=== PATIENT | male | born 1970 | race Caucasian/White ===

== ENCOUNTER 2019-11-29 07:23 | Inpatient (IN) ==
--- NOTE | 2019-11-29 07:41 | Emergency Department Note ---
ED Disposition Clinical Impression: Tobacco use ST elevation myocardial infarction (STEMI) Qualifiers: Involved coronary artery: unspecified coronary artery Qualified Code(s): I21.3 - ST elevation (STEMI) myocardial infarction of unspecified site Hyperlipidemia Qualifiers: Hyperlipidemia type: unspecified Qualified Code(s): E78.5 - Hyperlipidemia, unspecified Disposition: Admitted As Inpatient Condition on Discharge: Serious - Critical Care Critical Care Time: No Attestation: On 11/29/19, the high probability of a clinically significant, sudden or life threatening deterioration of the following system(s) required my full and direct attention, intervention and personal management. The time I documented below is in addition to time spent performing reported procedures but includes the following listed in this critical care notation. Medical Decision Making - Medical Records Medical records reviewed: Yes: I reviewed the patient's medical records. - Ken Inquiry Pt receiving controlled substance: No Vital Signs: 11/29/19 07:24 11/29/19 07:25 Temperature 98.4 F Temperature Source Oral Pulse Rate [Left Radial] 88 82 Respiratory Rate 16 Blood Pressure [Right Arm] 119/91 H 152/96 H Blood Pressure Mean [Right Arm] 100 114 Blood Pressure Source [Right Arm] Automatic Cuff Blood Pressure Position [Right Arm] Sitting Sitting 02 Sat by Pulse Oximetry 98 Oxygen Delivery Method Room Air - Lab Data Lab results reviewed: Yes: I reviewed the patient's lab results. Lab Results 11/29/19 07:29: WBC 14.7 H, RBC 5.78, Hgb 17.6, Hct 52.9 H, MCV 91.5, MCH 30.4, MCHC 33.2, RDW 13.4, Plt Count 344, MPV 7.3 L, Neut % (Auto) 79.2, Lymph % (Auto) 14.4, [place] % (Auto) 5.1, Eos % (Auto) 1.1, Baso % (Auto) 0.3, Neut # (Auto) 11.6 H, Lymph # (Auto) 2.1, [place] # (Auto) 0.8, Eos # (Auto) 0.2, Baso # (Auto) 0.0 11/29/19 07:29: Sodium 144, Potassium 3.8, Chloride 105, Carbon Dioxide 30, Anion Gap 12.8, BUN 30 H, Creatinine 0.99, Estimated Creat Clear 84, Estimated GFR 80, Est GFR ( Amer) 96, Glucose 125 H, Calcium 9.5, Troponin I 2.96 H 11/29/19 07:30: Triglycerides 109, Cholesterol 218 H, LDL Cholesterol 154 H, VLDL Cholesterol 22, HDL Cholesterol 42, Cholesterol/HDL Ratio 5.2 H Result diagrams: 11/29/19 07:29 11/29/19 07:29 Orders (Tests/Meds): ED MEDICATIONS Generic Name Dose Route Start Last Admin Trade Name Lesterq PRN Reason Stop Dose Admin Atorvastatin Calcium 80 mg 11/29/19 21:00 Lipitor 40mg Tablet PO 12/29/19 20:59 HS RIVAS Diphenhydramine HCl 50 mg 11/29/19 07:31 11/29/19 07:51 Benadryl 50mg/1ml Vial IV 11/29/19 07:32 50 mg ONCE ONE Administration Fentanyl Citrate 25 mcg 11/29/19 07:31 Fentanyl 100mcg/2ml Vial IV 11/30/19 07:31 Q3MINP PRN Moderate to Severe Pain Fentanyl Citrate 50 mcg 11/29/19 07:31 Fentanyl 100mcg/2ml Vial IV 11/30/19 07:31 Q3MINP PRN Moderate to Severe Pain Fentanyl Citrate 25 mcg 11/29/19 07:31 Fentanyl 250mcg/5ml Vial IV 11/30/19 07:31 Q3MINP PRN Moderate to Severe Pain Fentanyl Citrate 50 mcg 11/29/19 07:31 Fentanyl 250mcg/5ml Vial IV 11/30/19 07:31 Q3MINP PRN Moderate to Severe Pain Fentanyl Citrate 25 mcg 11/29/19 07:50 Fentanyl 250mcg/5ml Vial IV 11/30/19 07:50 Q3MINP PRN Moderate to Severe Pain Fentanyl Citrate 50 mcg 11/29/19 07:50 Fentanyl 250mcg/5ml Vial IV 11/30/19 07:50 Q3MINP PRN Moderate to Severe Pain Flumazenil 0.2 mg 11/29/19 07:31 Romazicon 0.1mg/Ml 5ml Vial IV 11/29/19 23:00 NEEDED PRN Sedation Flumazenil 0.2 mg 11/29/19 07:50 Romazicon 0.1mg/Ml 5ml Vial IV 11/29/19 23:00 NEEDED PRN Sedation Heparin Sodium (Porcine) 10,000 unit 11/29/19 07:31 Heparin 1,000 Units/Ml 10ml Vial (Javascript Web Developer) IV 11/29/19 11:31 NEEDED PRN Emergency Box Wireless Architect Heparin Sodium/Sodium Chloride 3,000 unit 11/29/19 07:31 11/29/19 07:51 Heparin 1000 Units/500ml Ns (Javascript Web Developer) IV 11/29/19 07:32 3,000 unit ONCE ONE Administration Sodium Chloride 1,000 mls @ 25 mls/hr 11/29/19 07:45 11/29/19 07:51 Sod Chlor 0.9% 1000ml Bag IV 11/30/19 07:31 25 mls/hr .Q25H RIVAS Administration Sodium Chloride 1,000 mls @ 999 mls/hr 11/29/19 08:00 11/29/19 07:25 Sod Chlor 0.9% 1000ml Bag IV 11/29/19 09:00 999 mls/hr .Q1H1M RIVAS Administration Lidocaine HCl 20 ml 11/29/19 07:31 Lidocaine 1% 5ml Pf Vial IJ 11/29/19 07:32 ONCE ONE Lidocaine HCl 20 ml 11/29/19 07:31 11/29/19 07:51 Lidocaine 1% 10ml Mdv IJ 11/29/19 07:32 10 ml ONCE ONE Administration Midazolam HCl 1 mg 11/29/19 07:31 Midazolam 2mg/2ml Vial IV 11/30/19 07:31 Q3MINP PRN Sedation Midazolam HCl 1 mg 11/29/19 07:31 Midazolam 1mg/Ml 5ml Vial IV 11/30/19 07:31 Q3MINP PRN Sedation Midazolam HCl 1 mg 11/29/19 07:50 Midazolam 2mg/2ml Vial IV 11/30/19 07:50 Q3MINP PRN Sedation Midazolam HCl 1 mg 11/29/19 07:50 Midazolam 1mg/Ml 5ml Vial IV 11/30/19 07:50 Q3MINP PRN Sedation Naloxone HCl 0.4 mg 11/29/19 07:31 Narcan 0.4mg/Ml Vial IV 11/30/19 07:31 Q5MINP PRN Decreased Respirations Naloxone HCl 0.4 mg 11/29/19 07:50 Narcan 0.4mg/Ml Vial IV 11/30/19 07:50 Q5MINP PRN Decreased Respirations Nitroglycerin 0.4 mg 11/29/19 07:28 11/29/19 07:26 Nitrostat 0.4mg Sl Tablet SL 12/29/19 07:27 0.4 mg Q5MINP PRN Administration Chest Pain Nitroglycerin 800 mcg 11/29/19 07:31 11/29/19 07:52 Nitroglycerin 800mcg/8ml Syr (Javascript Web Developer) IV 11/30/19 07:31 800 mcg NEEDED PRN Administration Emergency Box Wireless Architect Verapamil HCl 2.5 mg 11/29/19 07:31 11/29/19 07:52 Verapamil 2.5mg/Ml 2ml Vial IV 11/29/19 07:32 2.5 mg ONCE ONE Administration Discontinued Medications Generic Name Dose Route Start Last Admin Trade Name Freq PRN Reason Stop Dose Admin Aspirin 324 mg 11/29/19 07:28 11/29/19 07:24 Aspirin 81mg Chewable Tablet PO 11/29/19 07:29 324 mg ONCE ONE Administration ORDERS Category Date Time Status XR chest portable Stat Exams 11/29/19 07:28 Ordered Troponin I Q3H Lab 11/29/19 10:30 Ordered Troponin I Q3H Lab 11/29/19 13:30 Ordered - ECG Data Tracing #1 Normal Sinus Rhythm: Yes Ischemic changes: acute STEMI - Physician Consults Physician Consulted: chandrika Reason -: Pt condition Chest Pain HPI - General Chief Complaint: Chest Pain Stated Complaint: chest pain Time Seen by Provider: 11/29/19 07:25 Mode of Arrival: Ambulatory Source of Information: Patient, Medical Record Limitations: No Limitations Description of Symptoms (Recalled from ER Triage Doc. by RN): to ed per pvt car with c/o chest pain which woke him up at 4am. 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 pt states he also had simular pain tuesday but pain resolved. - History of Present Illness HPI narrative: episode of chest pain tuesday which improved - he then was awaken with chest pain this am with rad to shoulder at 0700- he was seen in the ed with stemi and was taken to lab scientist complaint: chest pain indicative of cardiac Onset (ago): hour(s) Duration: constant Activity at onset: awoke with symptoms Pain location: substernal Severity: moderate Quality: dull Pain radiation: LUE Risk Factors for CAD: Hypertension, Family Hx of CAD, Smoking Treatments prior to or on arrival for Cardiac Chest Pain: none - KYLE Score for Stemi Age of Patient: 50-59 years old Heart Rate: 70-89 bpm Systolic Blood Pressure: 100-119 mmHg Serum Creatinine: 0.80-1.19 mg/dl CHF [place] Class: I-No CHF Other Risk Factors: Elevated Cardiac Enzymes or Biomarkers Stemi Risk Score: 114 - Related Data Home Medications Medication Instructions Recorded Confirmed No Known Home Medications 11/29/19 11/29/19 Allergies Allergy/AdvReac Type Severity Reaction Status Date / Time CODEINE Allergy Mild Uncoded 10/04/17 15:03 [facility] History - Hepatitis A Screen Drug use history?: No High risk sexual behaviors?: No History of sexually transmitted infection?: No Currently employed?: No Childcare worker?: No Do you have indoor plumbing?: Yes Do you have electricity?: Yes Attestation statement:: This patient has been screened for Hepatitis A risk factors. I have reviewed the patient's past medical history: Yes - Social History Smoking Status: Current every day smoker Tobacco Type: cigarettes # Packs/Day (cigarettes): 1 Alcohol Intake: never Occupational Status: other ROS Obtained: Yes All systems reviewed & no additional complaints - Constitutional Constitutional: Denies fever(s) - Eyes Eyes: Denies change in vision - ENT Ears, Nose, Mouth, and Throat: Denies sore throat - Cardiovascular Cardiovascular: Reports chest pain, Denies dyspnea - Respiratory Respiratory: No cough - Gastrointestinal Gastrointestingal: Denies: abdominal pain - Genitourinary Male Genitourinary: Denies hematuria - Musculoskeletal Musculoskeletal: Denies joint swelling - Integumentary/Breasts Skin/Breast: Denies rash - Neurologic Neurologic: Reports as per HPI, Denies focal weakness, Denies seizure-like activity Physical Exam - General General appearance: alert - Head Head exam: normocephalic - Eye Eye exam: Present: PERRL, EOMI. Absent: scleral icterus - ENT ENT exam: Present: mucous membranes dry - Neck Neck exam: Present: trachea midline - Respiratory Respiratory exam: Present: normal lung sounds bilaterally. Absent: respiratory distress - Cardiovascular Cardiovascular exam: Present: regular rate, systolic murmur - Abdominal Exam Abdominal exam: Present: soft - Extremities Exam Extremities exam: Present: full ROM - Neurological Exam Neurological exam: Present: alert, oriented X3, CN II-XII intact - Psychiatric Psychiatric exam: Present: normal affect - Skin Skin exam: Absent: rash
[2019-11-29 07:42] LABS: Basophils % 0.3 % (0.1-2.0); Eosinophils # 0.2 K/mm3 (0.0-0.4); Eosinophils % 1.1 % (0.1-12.0); Hematocrit 52.9 % (42.0-52.0); Hemoglobin 17.6 g/dL (14.1-18.0); Lymphocytes # 2.1 K/mm3 (0.7-4.5); Lymphocytes % 14.4 % (10-50); Mean Corpuscular HGB Conc 33.2 g/dL (31.8-35.4); Mean Corpuscular Volume 91.5 fl (80-94); Mean Platelet Volume 7.3 fl (7.4-10.4); Monocytes # 0.8 K/mm3 (0.1-1.0); Monocytes % 5.1 % (1.7-9.3); Neutrophils # 11.6 K/mm3 (1.8-7.8); Neutrophils % 79.2 % (37.0-80.0); Platelet Count 344 K/mm3 (142-424); Red Blood Count 5.78 M/mm3 (4.60-6.20); Red Cell Distribution Width 13.4 % (11.5-17.5); White Blood Count 14.7 K/mm3 (4.8-10.8)
--- NOTE | 2019-11-29 07:44 | Consult Report ---
<Aren Bobby U - Last Filed: 11/29/19 07:54> History of Present Illness Consult date: 11/29/19 Requesting physician: Kong Aguilera Consult reason: chest pain Chief complaint: chest pain Additional Medical History:: 1. Tobacco use History of present illness: 49 yo WM with long history of tobacco use presented to ER for evaluation of recurrent SS CP that woke him from sleep at 4 AM today. Some associated left arm discomfort with SOA, nausea and vomiting. Same symptoms occurred 2 days ago but resolved after 2 hrs. EKG in ER shows NSR with inferolateral ST elevation with anterior ST depression. Symptoms improving after SL NTG, ASA, Brilinta and IV heparin given. Pt taken urgently to laboratory veterinarian for LHC. Denies DM, HTN, HLD. Takes no medication. [facility] History *Have you ever received a pneumonia vaccine?: No *Have you received a flu vaccine this season?: No - *Social History Smoking Status: Current every day smoker Tobacco Type: cigarettes # Packs/Day (cigarettes): 1 Alcohol Intake: never *Occupational Status:: other *Travel in the last 8 weeks: None Meds Home Medications Medication Instructions Recorded Confirmed Type No Known Home Medications 11/29/19 11/29/19 History Allergies Allergy/AdvReac Type Severity Reaction Status Date / Time codeine Allergy Mild Unknown Verified 11/29/19 08:09 allergy reaction Review of Systems - Review of Systems Review of systems:: pertinent systems reviewed and negative unless documented below - *Cardiovascular Reports chest pain - *Respiratory Denies shortness of breath - *Gastrointestinal Denies change in stools, Denies loose stools, Denies vomiting - *Genitourinary Denies blood in urine - *Musculoskeletal Denies joint pain, Denies back pain - *Neurologic Denies fainting, Denies tingling Exam Vital signs and Labs for Last 24 Hours: Temp Pulse Resp BP Pulse Ox 98.4 F 82 16 152/96 H 98 11/29/19 07:24 11/29/19 07:25 11/29/19 07:24 11/29/19 07:25 11/29/19 07:24 I & O for Last 24 hours: Intake & Output 11/26/19 11/27/19 11/28/19 11/29/19 11:59 11:59 11:59 11:59 Weight 148 lb - *Routine HEENT Exam Head: Present: normocephalic Eye: Present: EOMI, PERRL ENT: Present: mucous membranes moist - *Routine Neck Exam Present: supple. Absent: JVD, carotid bruit - *Routine Respiratory Exam Present: CTA bilaterally. Absent: accessory muscle use, rales, rhonchi, wheezes - *Routine Cardiovascular Exam Present: RRR. Absent: murmur, gallop, rubs - *Routine Abdominal Exam Present: soft. Absent: tenderness, distended, guarding - *Routine Extremities Exam Absent: edema, calf tenderness - *Routine Neurological Exam Present: alert, oriented X3, moving all extremities Assessment and Plan (1) STEMI (ST elevation myocardial infarction) Current visit: Yes Status: Acute Category: Medical Code(s): I21.3 - ST elevation (STEMI) myocardial infarction of unspecified site (2) Tobacco use Current visit: Yes Status: Acute Category: Social Hx Code(s): Z72.0 - Tobacco use - Assessment and plan all Dx Assessment and Plan for all problems:: 1. LHC now. DAPT with ASA and brilinta. 2. Elevated BP, start GDMT after cath 3. HLD, start statin 4. Echo after LHC <Kong Aguilera S - Last Filed: 11/29/19 08:27> [facility] History Family Hx:: Non-contributory Exam Vital signs and Labs for Last 24 Hours: Temp Pulse Resp BP Pulse Ox 98.4 F 82 16 152/96 H 98 11/29/19 07:24 11/29/19 07:25 11/29/19 07:24 11/29/19 07:25 11/29/19 07:24 Laboratory Results - last 24 hr 11/29/19 07:29: WBC 14.7 H, RBC 5.78, Hgb 17.6, Hct 52.9 H, MCV 91.5, MCH 30.4, MCHC 33.2, RDW 13.4, Plt Count 344, MPV 7.3 L, Neut % (Auto) 79.2, Lymph % (Auto) 14.4, [place] % (Auto) 5.1, Eos % (Auto) 1.1, Baso % (Auto) 0.3, Neut # (Auto) 11.6 H, Lymph # (Auto) 2.1, [place] # (Auto) 0.8, Eos # (Auto) 0.2, Baso # (Auto) 0.0 11/29/19 07:29: Sodium 144, Potassium 3.8, Chloride 105, Carbon Dioxide 30, Anion Gap 12.8, BUN 30 H, Creatinine 0.99, Estimated Creat Clear 84, Estimated GFR 80, Est GFR ( Amer) 96, Glucose 125 H, Calcium 9.5, Troponin I 2.96 H 11/29/19 07:30: Triglycerides 109, Cholesterol 218 H, LDL Cholesterol 154 H, VLDL Cholesterol 22, HDL Cholesterol 42, Cholesterol/HDL Ratio 5.2 H I & O for Last 24 hours: Intake & Output 11/26/19 11/27/19 11/28/19 11/29/19 11:59 11:59 11:59 11:59 Weight 148 lb Assessment and Plan (1) STEMI (ST elevation myocardial infarction) Current visit: Yes Status: Acute Category: Medical Code(s): I21.3 - ST elevation (STEMI) myocardial infarction of unspecified site (2) Tobacco use Current visit: Yes Status: Acute Category: Social Hx Code(s): Z72.0 - Tobacco use (3) Hyperlipidemia Current visit: Yes Status: Acute Qualifiers: Hyperlipidemia type: unspecified Qualified Code(s): E78.5 - Hyperlipidemia, unspecified Category: Medical Code(s): E78.5 - Hyperlipidemia, unspecified
[2019-11-29 07:57] LABS: Chol/HDL Ratio 5.2 (1-3.5)
[2019-11-29 08:03] LABS: Anion Gap 12.8 mEq/L (5-15); Calcium 9.5 mg/dL (8.5-10.1)
--- NOTE | 2019-11-29 08:28 | History & Physical Report ---
*Admission Date: 11/29/19 *Chief complaint: chest pain *History of present illness: this wm presented to ed - pt had had episode of chest pain a few days ago which resolved and now with chest pain for several hrs which awoke pt - he was seen in the ed with stemi-49 yo WM with long history of tobacco use presented to ER for evaluation of recurrent SS CP that woke him from sleep at 4 AM today. Some associated left arm discomfort with SOA, nausea and vomiting. Same symptoms occurred 2 days ago but resolved after 2 hrs. EKG in ER shows NSR with inferolateral ST elevation with anterior ST depression. Symptoms improving after SL NTG, ASA, Brilinta and IV heparin given. Pt taken urgently to label printing machinist for LHC. Denies DM, HTN, HLD. Takes no medication.pt was seen by card and taken to label printing machinist [facility] History I have reviewed the patient's past medical history: Yes *Have you ever received a pneumonia vaccine?: No *Have you received a flu vaccine this season?: No - *Social History Smoking Status: Current every day smoker Tobacco Type: cigarettes # Packs/Day (cigarettes): 1 Alcohol Intake: never *Occupational Status:: other *Travel in the last 8 weeks: None Family Hx:: Non-contributory Review of Systems - Review of Systems Review of systems:: pertinent systems reviewed and negative unless documented below - Constitutional Denies fever(s) - Eyes Denies change in vision - ENT Denies sore throat - *Cardiovascular Reports chest pain, Reports radiating jaw, neck or arm pain - *Respiratory Denies cough - *Gastrointestinal Denies abdominal pain - *Genitourinary Denies blood in urine - *Musculoskeletal Denies joint pain, Denies joint swelling - Integumentary/Breasts Denies rash - *Neurologic Denies localized weakness, Denies seizure-like activity, Denies fainting, Denies tingling - Psychiatric Denies anxiety Meds Home Medications Medication Instructions Recorded Confirmed Type No Known Home Medications 11/29/19 11/29/19 History Allergies Allergy/AdvReac Type Severity Reaction Status Date / Time codeine Allergy Mild Unknown Verified 11/29/19 08:09 allergy reaction Exam Vital signs and Labs for Last 24 Hours: Temp Pulse Resp BP Pulse Ox 98.4 F 87 16 152/87 H 98 11/29/19 08:26 11/29/19 08:26 11/29/19 08:26 11/29/19 08:26 11/29/19 07:24 Laboratory Results - last 24 hr 11/29/19 07:29: WBC 14.7 H, RBC 5.78, Hgb 17.6, Hct 52.9 H, MCV 91.5, MCH 30.4, MCHC 33.2, RDW 13.4, Plt Count 344, MPV 7.3 L, Neut % (Auto) 79.2, Lymph % (Auto) 14.4, [place] % (Auto) 5.1, Eos % (Auto) 1.1, Baso % (Auto) 0.3, Neut # (Auto) 11.6 H, Lymph # (Auto) 2.1, [place] # (Auto) 0.8, Eos # (Auto) 0.2, Baso # (Auto) 0.0 11/29/19 07:29: Sodium 144, Potassium 3.8, Chloride 105, Carbon Dioxide 30, Anion Gap 12.8, BUN 30 H, Creatinine 0.99, Estimated Creat Clear 84, Estimated GFR 80, Est GFR ( Amer) 96, Glucose 125 H, Calcium 9.5, Troponin I 2.96 H 11/29/19 07:30: Triglycerides 109, Cholesterol 218 H, LDL Cholesterol 154 H, VLDL Cholesterol 22, HDL Cholesterol 42, Cholesterol/HDL Ratio 5.2 H I & O for Last 24 hours: Intake & Output 11/26/19 11/27/19 11/28/19 11/29/19 11:59 11:59 11:59 11:59 Weight 148 lb - Constitutional no acute distress, thin - *Routine HEENT Exam Head: Present: normocephalic Eye: Present: EOMI, PERRL ENT: Present: mucous membranes moist - *Routine Neck Exam Present: supple. Absent: JVD - *Routine Respiratory Exam Present: CTA bilaterally - *Routine Cardiovascular Exam Present: RRR. Absent: murmur, gallop, rubs - *Routine Abdominal Exam Present: soft - *Routine Extremities Exam Present: full ROM. Absent: calf tenderness - *Routine Skin Exam Present: intact - *Routine Neurological Exam Present: alert, oriented X3, CN II-XII intact - Routine Psychiatric Exam Present: normal affect Assessment and Plan (1) STEMI (ST elevation myocardial infarction) Current visit: Yes Status: Acute Category: Medical Code(s): I21.3 - ST elevation (STEMI) myocardial infarction of unspecified site (2) Tobacco use Current visit: Yes Status: Acute Category: Social Hx Code(s): Z72.0 - Tobacco use (3) Hyperlipidemia Current visit: Yes Status: Acute Qualifiers: Hyperlipidemia type: unspecified Qualified Code(s): E78.5 - Hyperlipidemia, unspecified Category: Medical Code(s): E78.5 - Hyperlipidemia, unspecified
--- NOTE | 2019-11-29 08:53 | Pharmacy Consult Notes ---
[facility] Pharmacy VTE Monitoring - Patient Demographics Admission date: 11/29/19 Report Date: 11/29/19 Time: 08:53 Allergies/Adverse Reactions: Patient Allergies codeine Allergy (Mild, Verified 11/29/19 08:09) Unknown allergy reaction Height: 1.75 m Weight: 67.132 kg Patient Problems: Current Active Problems STEMI (ST elevation myocardial infarction) (Acute) Tobacco use (Acute) ST elevation myocardial infarction (STEMI) (Acute) Tobacco use (Acute) Hyperlipidemia (Acute) - VTE Risk Labs: VTE Related Lab Results Hgb 17.6 g/dL (14.1-18.0) 11/29/19 07:29 Hct 52.9 % (42.0-52.0) H 11/29/19 07:29 Plt Count 344 K/mm3 (142-424) 11/29/19 07:29 BUN 30 mg/dL (7-18) H 11/29/19 07:29 Creatinine 0.99 mg/dL (0.70-1.30) 11/29/19 07:29 Estimated Creat Clear 84 mL/min (50-200) 11/29/19 07:29 - Prophylaxis VTE Prophylaxis Ordered?: Yes Types of VTE Prophylaxis: TEDS Knee High Location of Applied Device: Bilateral Lower Extremeties - VTE Diagnosis Confirmed Treatment or plan recommended: Continue Current Treatment
[2019-11-30 06:04] LABS: Basophils % 0.2 % (0.1-2.0); Eosinophils # 0.3 K/mm3 (0.0-0.4); Eosinophils % 1.9 % (0.1-12.0); Hematocrit 49.6 % (42.0-52.0); Hemoglobin 16.1 g/dL (14.1-18.0); Lymphocytes # 2.8 K/mm3 (0.7-4.5); Lymphocytes % 20.7 % (10-50); Mean Corpuscular HGB Conc 32.4 g/dL (31.8-35.4); Mean Corpuscular Volume 90.4 fl (80-94); Mean Platelet Volume 7.6 fl (7.4-10.4); Monocytes # 1.2 K/mm3 (0.1-1.0); Monocytes % 8.9 % (1.7-9.3); Neutrophils # 9.3 K/mm3 (1.8-7.8); Neutrophils % 68.4 % (37.0-80.0); Platelet Count 323 K/mm3 (142-424); Red Blood Count 5.48 M/mm3 (4.60-6.20); Red Cell Distribution Width 13.4 % (11.5-17.5); White Blood Count 13.5 K/mm3 (4.8-10.8)
[2019-11-30 07:08] LABS: Albumin Level 3.4 g/dL (3.4-5.0); Albumin/Globulin Ratio 0.9 (1.1-1.8); Anion Gap 13.9 mEq/L (5-15); Bilirubin,Total 0.9 mg/dL (0.2-1.0); Calcium 9.1 mg/dL (8.5-10.1); Globulin 3.8 gm/dl (1.3-3.2); Total Protein,Serum 7.2 g/dL (6.4-8.2)
--- NOTE | 2019-11-30 09:19 | Discharge Summary ---
General - General Admission date:: 11/29/19 Discharge date: 11/30/19 HPI HPI: this wm presented to ed - pt had had episode of chest pain a few days ago which resolved and now with chest pain for several hrs which awoke pt - he was seen in the ed with stemi-49 yo WM with long history of tobacco use presented to ER for evaluation of recurrent SS CP that woke him from sleep at 4 AM today. Some associated left arm discomfort with SOA, nausea and vomiting. Same symptoms occurred 2 days ago but resolved after 2 hrs. EKG in ER shows NSR with inferolateral ST elevation with anterior ST depression. Symptoms improving after SL NTG, ASA, Brilinta and IV heparin given. Pt taken urgently to quality control lab technician for LHC. Denies DM, HTN, HLD. Takes no medication.pt was seen by card and taken to quality control lab technician Hospital Course Hospital Course: Laboratory Tests 11/29/19 11/29/19 11/29/19 07:29 07:29 07:30 WBC 14.7 H RBC 5.78 Hgb 17.6 Hct 52.9 H MCV 91.5 MCH 30.4 MCHC 33.2 RDW 13.4 Plt Count 344 MPV 7.3 L Neut % (Auto) 79.2 Lymph % (Auto) 14.4 [place] % (Auto) 5.1 Eos % (Auto) 1.1 Baso % (Auto) 0.3 Neut # (Auto) 11.6 H Lymph # (Auto) 2.1 [place] # (Auto) 0.8 Eos # (Auto) 0.2 Baso # (Auto) 0.0 Activated Clotting Time Sodium 144 Potassium 3.8 Chloride 105 Carbon Dioxide 30 Anion Gap 12.8 BUN 30 H Creatinine 0.99 Estimated Creat Clear 84 Estimated GFR 80 Est GFR ( Amer) 96 Glucose 125 H Calcium 9.5 Total Bilirubin AST ALT Alkaline Phosphatase Troponin I 2.96 H Total Protein Albumin Globulin Albumin/Globulin Ratio Triglycerides 109 Cholesterol 218 H LDL Cholesterol 154 H VLDL Cholesterol 22 HDL Cholesterol 42 Cholesterol/HDL Ratio 5.2 H 11/29/19 11/29/19 11/30/19 08:06 08:16 05:28 WBC 13.5 H RBC 5.48 Hgb 16.1 Hct 49.6 MCV 90.4 MCH 29.3 MCHC 32.4 RDW 13.4 Plt Count 323 MPV 7.6 Neut % (Auto) 68.4 Lymph % (Auto) 20.7 [place] % (Auto) 8.9 Eos % (Auto) 1.9 Baso % (Auto) 0.2 Neut # (Auto) 9.3 H Lymph # (Auto) 2.8 [place] # (Auto) 1.2 H Eos # (Auto) 0.3 Baso # (Auto) 0.0 Activated Clotting Time 279 H* 252 H* Sodium Potassium Chloride Carbon Dioxide Anion Gap BUN Creatinine Estimated Creat Clear Estimated GFR Est GFR ( Amer) Glucose Calcium Total Bilirubin AST ALT Alkaline Phosphatase Troponin I Total Protein Albumin Globulin Albumin/Globulin Ratio Triglycerides Cholesterol LDL Cholesterol VLDL Cholesterol HDL Cholesterol Cholesterol/HDL Ratio 11/30/19 05:28 WBC RBC Hgb Hct MCV MCH MCHC RDW Plt Count MPV Neut % (Auto) Lymph % (Auto) [place] % (Auto) Eos % (Auto) Baso % (Auto) Neut # (Auto) Lymph # (Auto) [place] # (Auto) Eos # (Auto) Baso # (Auto) Activated Clotting Time Sodium 143 Potassium 3.9 Chloride 107 Carbon Dioxide 26 Anion Gap 13.9 BUN 15 D Creatinine 0.88 Estimated Creat Clear 95 Estimated GFR 91 Est GFR ( Amer) 110 Glucose 111 H Calcium 9.1 Total Bilirubin 0.9 AST 277 H ALT 85 H Alkaline Phosphatase 89 Troponin I Total Protein 7.2 Albumin 3.4 Globulin 3.8 H Albumin/Globulin Ratio 0.9 L Triglycerides Cholesterol LDL Cholesterol VLDL Cholesterol HDL Cholesterol Cholesterol/HDL Ratio chest x ray:IMPRESSION: Wedge-shaped retrocardiac density on the right in the right lung base medially. Pneumonia, atelectasis, or infarct is a consideration. troponin: 2.96 when presented to the ER, EKG showed ST elevation Patient was sent from ER to [facility] [employer]st stents placed see cath report. Patient will be discharged home today with medications recommended by cardiology will follow-up with cardiology in 1 week and with PCP in 1 week. Objective Vital signs: Temp Pulse Resp BP Pulse Ox 98.2 F 82 14 108/76 L 97 11/30/19 08:00 11/30/19 06:00 11/30/19 06:00 11/30/19 06:00 11/30/19 06:00 no acute distress - *Routine HEENT Exam Head: Present: normocephalic Eye: Present: PERRL ENT: Present: mucous membranes moist - *Routine Neck Exam Present: supple - *Routine Respiratory Exam Present: CTA bilaterally - *Routine Cardiovascular Exam Present: RRR - *Routine Abdominal Exam Present: soft, normoactive bowel sounds. Absent: tenderness - *Routine Extremities Exam Present: normal capillary refill. Absent: cyanosis, clubbing, edema Comments: Dressing in place clean dry and intact - *Routine Skin Exam Present: warm. Absent: rash Comments: Dressing in place clean dry and intact - *Routine Neurological Exam Present: alert, oriented X3 - Routine Psychiatric Exam Present: normal affect Results Labs on day of discharge: Labs from last 24 hours 11/30/19 11/30/19 11/29/19 05:28 05:28 08:16 WBC 13.5 H RBC 5.48 Hgb 16.1 Hct 49.6 MCV 90.4 MCH 29.3 MCHC 32.4 RDW 13.4 Plt Count 323 MPV 7.6 Neut % (Auto) 68.4 Lymph % (Auto) 20.7 [place] % (Auto) 8.9 Eos % (Auto) 1.9 Baso % (Auto) 0.2 Neut # (Auto) 9.3 H Lymph # (Auto) 2.8 Adams # (Auto) 1.2 H Eos # (Auto) 0.3 Baso # (Auto) 0.0 Activated Clotting Time 252 H* Sodium 143 Potassium 3.9 Chloride 107 Carbon Dioxide 26 Anion Gap 13.9 BUN 15 D Creatinine 0.88 Estimated Creat Clear 95 Estimated GFR 91 Est GFR ( Amer) 110 Glucose 111 H Calcium 9.1 Total Bilirubin 0.9 AST 277 H ALT 85 H Alkaline Phosphatase 89 Total Protein 7.2 Albumin 3.4 Globulin 3.8 H Albumin/Globulin Ratio 0.9 L 11/29/19 08:06 WBC RBC Hgb Hct MCV MCH MCHC RDW Plt Count MPV Neut % (Auto) Lymph % (Auto) [place] % (Auto) Eos % (Auto) Baso % (Auto) Neut # (Auto) Lymph # (Auto) [place] # (Auto) Eos # (Auto) Baso # (Auto) Activated Clotting Time 279 H* Sodium Potassium Chloride Carbon Dioxide Anion Gap BUN Creatinine Estimated Creat Clear Estimated GFR Est GFR ( Amer) Glucose Calcium Total Bilirubin AST ALT Alkaline Phosphatase Total Protein Albumin Globulin Albumin/Globulin Ratio - Additional Comments Rounded with Dr. Aguilera all orders per Willy DS: Diagnosis - Discharge Diagnosis (1) STEMI (ST elevation myocardial infarction) Status: Acute (2) Tobacco use Status: Acute (3) Hyperlipidemia Status: Acute Discharge Plan - Patient Discharge Instructions ACTIVITY: Continue current activity DIET: continue same diet Patient Instructions: Heart Attack, Cardiac Catheterization, Heart-Healthy Diet, DI for Cardiac Catheterization, DI for Surgical Site Infection, Quitting Smoking After a Heart Attack, How to Quit Smoking - Follow up Plan Follow up with: Ramiro Gonzalez APRN [Nurse Practitioner] - 12/05/19 10:00 am Marcio Sharpe MD [Staff Physician] - 12/06/19 11:00 am ProviderJuan Ramon MD [Primary Care Provider] - Disposition: Home, [facility] Medications: Home Medications Medication Instructions Recorded Confirmed Type No Known Home Medications 11/29/19 11/29/19 History Aspirin [Aspirin 81mg chewable 81 mg PO DAILY 30 Days #30 tab.chew 11/30/19 Rx tab] Metoprolol Tartrate [Lopressor 12.5 mg PO BID 30 Days #60 tab 11/30/19 Rx 25mg tablet] Nicotine [Nicoderm 21mg/24hr 21 mg TD DAILYP PRN 30 Days #30 11/30/19 Rx patch] patch.td24 Ticagrelor [Brilinta 90mg Tablet] 90 mg PO BID 30 Days #60 tab 11/30/19 Rx lisinopriL [Zestril 2.5mg Tablet] 2.5 mg PO DAILY 30 Days #30 tab 11/30/19 Rx Prescriptions/Medication Reconciliation: New Ticagrelor [Brilinta 90mg Tablet] 90 mg PO BID 30 Days #60 tab Metoprolol Tartrate [Lopressor 25mg tablet] 12.5 mg PO BID 30 Days #60 tab Nicotine [Nicoderm 21mg/24hr patch] 21 mg TD DAILYP PRN 30 Days #30 patch.td24 PRN Reason: Nicotine Cravings lisinopriL [Zestril 2.5mg Tablet] 2.5 mg PO DAILY 30 Days #30 tab Aspirin [Aspirin 81mg chewable tab] 81 mg PO DAILY 30 Days #30 tab.chew No Action No Known Home Medications - Problem Reconciliation Problems Reviewed?: Yes
--- NOTE | 2019-11-30 10:39 | Progress Note ---
Subjective Date: 11/30/19 Time: 08:00 Principal diagnosis: Chest pain Interval history: 49-year-old male admitted to [facility] with chest pain on 11/29/2019. Patient underwent left heart catheterization (11/29/2019) which required stenting to the circumflex artery. Patient is doing well this a.m. Patient denies chest pain, shortness of breath or dizziness. Patient is ambulating within the room. No swelling noted of the lower extremities. Patient denies cough or fever. Vital signs are stable. campus monitor reveals sinus rhythm with a heart rate of 70 bpm. Catheter site area of the right wrist noted with dry dressing. No swelling or redness noted around the site. Patient states he is eager to go home. Directed patient not to do any strenuous exercise or activity. Recommended limited usage of the right wrist due to left heart cath access. Patient is a tobacco user. Tobacco cessation advised and counseled. LDL goal<55. Patient is on appropriate medications such as beta- stew, statin, MAEGAN inhibitor and anticoagulant for his coronary artery disease and S/P STEMI. Instructed patient to notify cardiology clinic if cath site develops bleeding or swelling. Patient instructed to notify cardiology clinic if develops chest pain or shortness of breath. Patient verbalizes understanding. Thank you for letting cardiology participate in the care of this patient. Exam Vital signs and Labs for Last 24 Hours: Temp Pulse Resp BP Pulse Ox 98.2 F 82 14 108/76 L 97 11/30/19 08:00 11/30/19 06:00 11/30/19 06:00 11/30/19 06:00 11/30/19 06:00 Laboratory Results - last 24 hr 11/29/19 08:06: Activated Clotting Time 279 H* 11/29/19 08:16: Activated Clotting Time 252 H* 11/30/19 05:28: WBC 13.5 H, RBC 5.48, Hgb 16.1, Hct 49.6, MCV 90.4, MCH 29.3, MCHC 32.4, RDW 13.4, Plt Count 323, MPV 7.6, Neut % (Auto) 68.4, Lymph % (Auto) 20.7, [place] % (Auto) 8.9, Eos % (Auto) 1.9, Baso % (Auto) 0.2, Neut # (Auto) 9.3 H, Lymph # (Auto) 2.8, [place] # (Auto) 1.2 H, Eos # (Auto) 0.3, Baso # (Auto) 0.0 11/30/19 05:28: Sodium 143, Potassium 3.9, Chloride 107, Carbon Dioxide 26, Anion Gap 13.9, BUN 15 D, Creatinine 0.88, Estimated Creat Clear 95, Estimated GFR 91, Est GFR ( Amer) 110, Glucose 111 H, Calcium 9.1, Total Bilirubin 0.9, AST 277 H, ALT 85 H, Alkaline Phosphatase 89, Total Protein 7.2, Albumin 3.4, Globulin 3.8 H, Albumin/Globulin Ratio 0.9 L I & O for Last 24 hours: Intake & Output 11/27/19 11/28/19 11/29/19 11/30/19 23:59 23:59 23:59 23:59 Intake Total 840 / 960 360 / 360 Balance 840 / 960 360 / 360 Weight 149 lb 6 oz 148 lb 7 oz - Constitutional no acute distress, average body habitus, cooperative - *Routine HEENT Exam Head: Present: normocephalic - *Routine Neck Exam Present: supple, full ROM, normal carotid upstroke. Absent: JVD, carotid bruit, lymphadenopathy - Routine Chest/Breast/Axilla Exam Chest wall: Absent: tenderness, mass, pacemaker - *Routine Respiratory Exam Present: accessory muscle use, CTA bilaterally. Absent: rhonchi, wheezes, crackles, diminished air movement - *Routine Cardiovascular Exam Present: RRR, Normal S1, Normal S2. Absent: murmur, gallop, click, bradycardia, tachycardia, irregular rhythm, irregularly irregular, JVD - *Routine Abdominal Exam Present: soft, normoactive bowel sounds. Absent: tenderness, firm, mass - *Routine Extremities Exam Present: full ROM, pulses intact, normal capillary refill. Absent: cyanosis, clubbing, edema - Routine Back/Spine/Pelvis Exam Back/Spine: Present: full ROM. Absent: CVA tenderness - *Routine Skin Exam Present: intact, dry, warm. Absent: cyanosis, erythema Comments: Right wrist cath site noted with dry dressing applied. No redness or swelling noted around the site. - *Routine Neurological Exam Present: alert, oriented X3, CN II-XII intact, moving all extremities, normal speech - Routine Psychiatric Exam Present: normal affect, normal thought process, cooperative. Absent: depressed, anxious Progress Note: A&P (1) STEMI (ST elevation myocardial infarction) Status: Acute Current Visit: Yes (2) Tobacco use Status: Acute Current Visit: Yes (3) Hyperlipidemia Status: Acute Current Visit: Yes Assessment and Plan for All Diagnoses:: Plan: 1. Discharge home today. 2. No strenous activity or exercise until follow up with Cardiology clinic in one week. 3. Instructed limited usage of right wrist cath site. 4. Instructed pt to notify cardiology clinic if he develops chest pain or shortness of breath. 5. Instructed pt to notify cardiology clinic if he develops drainage or knot at the right wrist cath site. 6. Recommend cardiac rehab to increase stamina and due to Coronary artery disease. 7. Tobacco cessation advised and counseled. 8. LDL goal<55. Pt is on a statin. 9. Follow up with Cardiology clinic in one week for Coronary artery disease.
--- NOTE | 2019-11-30 13:56 | Cardiology Report ---
APPROVED REPORT EXAM: Comprehensive 2D, Doppler, and color-flow Echocardiogram [employer] Operator: Monica Singh CRT Ht: 5 ft 9 in Wt: 148lbs BSA: 1.82 BP: 152/90 mmHg Indications: Abnormal ECG, Acute DE, CAD 2D Dimensions LVOT 1.97 cm (M/F) 1.5-2.5 M-Mode Dimensions RVDd 2.75 cm (0.9-2.6)LVDd 5.57 cm (3.5-5.7) LVDs 4.53 cm (3.5-5.7)IVSd 0.75 cm (0.6-1.1) PWd 0.79 cm (0.6-1.1)EF (Teich) 38.10% FS 18.70% EDV (Teich) 151.80 mL ESV (Teich) 93.90 mL LV Diastology E/A Ratio 1.03 Mitral Valve MV A Velocity 51.00 (40-130 cm/s) Left Ventricle Atrium is mildly enlarged, left ventricle is normal size, mild concentric left ventricular hypertrophy, visually estimated ejection fraction 45 to 50%, there is mild inferior wall hypokinesis. Grade 1 diastolic dysfunction seen without tissue Doppler evidence of raise left atrial pressure. Right Ventricle Right atrium and right ventricle mildly enlarged with normal contractility. Aortic Valve Aortic valve is minimally thickened and fibrosed, leaflet chordae display good mobility. Mitral Valve Mitral valve is grossly normal, there is mild mitral regurgitation. Tricuspid Valve Tricuspid valve is grossly normal, there is mild tricuspid regurgitation, calculated right ventricular systolic pressure is 45 mmHg. Pulmonic Valve Pulmonic valve is poorly visualized. Great Vessels Aortic root is normal size. Pericardium No significant pericardial effusion noted. Conclusion 1. Mild mitral enlargement, normal left ventricular size, mild concentric left ventricular hypertrophy, visually estimated ejection fraction 45 to 50% with segmental wall motion abnormality described above, grade 1 diastolic dysfunction seen without tissue Doppler evidence of raise left atrial pressure. 2. Mildly enlarged right ventricle with normal contractility. 3. Mild mitral and tricuspid regurgitation. 4. No significant pericardial effusion noted. Electronically signed by : Matteo Escalante, 11/30/2019 13:55:50
--- NOTE | 2019-12-02 07:50 | Electrocardiograph Report ---
APPROVED REPORT Exam: Resting ECG HR:78 bpm ECG Measurements Heart Rate 78 AXES ND 126 P 72 QRSd 84 QRS 74 QT 360 T74 QTc 410 <Conclusion> Normal sinus rhythm Marked ST abnormality, possible anterior subendocardial injury Abnormal ECG Electronically signed by : Chava North, 12/02/2019 07:50:20
== END 2019-11-30 11:05 | disposition home or self-care (01) | DRG 247 ==
LOC: ER 07:23 → CATHLAB 07:41 → 2ND 07:46
PROVIDERS: ADMIT Emergency Medicine; ATTEND Emergency Medicine
CPT/HCPCS: 36415; 71010; 71020; 71045; 71046; 80048; 80053; 80061; 84484; 85025; 85347; 92941; 93005; 93306; 93458; 96365; 99152; 99284; C1725; C1769; C1876; C9606; J1644; Q9967

== ENCOUNTER 2019-12-11 13:53 | Outpatient (RCR) | payer OTHER, SELFPAY | END 2020-02-14 13:09 | disposition home or self-care (01) | LOC: PT 13:53 | PROVIDERS: Visit Provider Internal Medicine | DX: Z95.5 Presence of coronary angioplasty implant and graft (principal); I25.10 Atherosclerotic heart disease of native coronary artery without angina pectoris | CPT/HCPCS: 93798 ==